=== PATIENT | female | born 1980 | race African-American/Black ===

== ENCOUNTER 2017-11-14 14:17 | Emergency (ER) | payer MEDICAID, OTHER ==
[~2017-11-14] VITALS: Ht 170.2 cm; Wt 133.0 kg
[2017-11-14 14:24] VITALS: BP 137/81; PULSE 110; RESP 16; TEMP 98.4; O2SAT 96
--- NOTE | 2017-11-14 14:40 | PD ---
HPI Chief Complaint: Injury Time Seen by Provider: 14:29 Travel History International Travel<30 days: No Contact w/Intl Traveler<30days: No Traveled to known affect area: No History of Present Illness HPI 37-year-old female with left ankle and foot pain after she twisted the extremity going up stairs yesterday. She has pain with weightbearing and range of motion. Denies paresthesia or weakness of the extremity. Symptom severity is moderate. Alleviated with rest and elevation. PFSH Past Medical History ?: Not LMP: 10/30/17 Social History Tobacco Use: No Allergies-Medications (Allergen,Severity, Reaction): Coded Allergies: No Known Allergies (Unverified , 11/14/17) Reported Meds & Prescriptions Reported Meds & Active Scripts Active No Active Prescriptions or Reported Medications Review of Systems Except as stated in HPI: all other systems reviewed are Neg Physical Exam Narrative GENERAL: Alert and well-appearing 37-year-old female SKIN: Warm and dry. HEAD: Normocephalic. EYES: No injection or drainage. NECK: Supple CARDIOVASCULAR: Regular rate and rhythm RESPIRATORY: Breath sounds equal bilaterally. No accessory muscle use. GASTROINTESTINAL: Abdomen soft, non-tender, nondistended. MUSCULOSKELETAL: No cyanosis. LLE: +TTP lateral malleolus and base of the fifth metatarsal. Mild swelling. Palpable DP pulse. Can freely wiggle the toes. Normal sensation. Brisk cap refill. Data Data Last Documented VS Vital Signs Date Time Temp Pulse Resp B/P (MAP) Pulse Ox O2 Delivery O2 Flow Rate FiO2 11/14/17 14:28 Room Air 11/14/17 14:24 98.4 110 16 137/81 (99) 96 Orders Orders Foot, Complete ([id number]) (11/14/17 ) Ankle, Complete ([id number]) (11/14/17 ) Apolinar Bandage (11/14/17 16:07) Splint Or Brace Apply/Monitor (11/14/17 16:07) Crutches (11/14/17 16:09) Ed Discharge Order (11/14/17 16:34) MDM Medical Decision Making Medical Screen Exam Complete: Yes Emergency Medical Condition: Yes Differential Diagnosis Fracture versus sprain versus contusion Narrative Course 37-year-old female with left ankle and foot pain. Extremities neurovascularly intact. X-ray negative for fracture Diagnosis Primary Impression: Ankle sprain Qualified Codes: S93.402A - Sprain of unspecified ligament of left ankle, initial encounter Referrals: Primary Care Physician Additional Instructions: Ibuprofen 800 mg every 6 hours as needed for pain. Ice and elevate the extremity. Splint and crutches for weightbearing. Follow-up with primary doctor Scripts No Active Prescriptions or Reported Meds Disposition: 01 DISCHARGE HOME Condition: Stable Paula Templeton Nov 14, 2017 14:40
--- NOTE | 2017-11-14 15:53 | RADRPT ---
EXAM DATE: 11/14/2017 2:49 PM EDT AGE/SEX: 37 years / Female INDICATIONS: Left foot pain after trip and fall down one step. CLINICAL DATA: This is the patient's initial encounter. Patient reports that signs and symptoms have been present for 1 day and indicates a pain score of 7/10. MEDICAL/SURGICAL HISTORY: None. None. COMPARISON: No prior exams available for comparison. FINDINGS: Bony structures are intact and in normal alignment. Osseous density is normal. Soft tissues are unre markable. No radiopaque foreign bodies seen. CONCLUSION: Negative examination. Electronically signed by: Eduar Jacobsen MD 11/14/2017 3:52 PM EDT
--- NOTE | 2017-11-14 15:54 | RADRPT ---
EXAM DATE: 11/14/2017 2:48 PM EDT AGE/SEX: 37 years / Female INDICATIONS: Left ankle pain after trip and fall down one step. CLINICAL DATA: This is the patient's initial encounter. Patient reports that signs and symptoms have been present for 1 day and indicates a pain score of 8/10. MEDICAL/SURGICAL HISTORY: None. None. COMPARISON: No prior exams available for comparison. FINDINGS: Bony structures are intact and in normal alignment. Joints are intact without dislocation or signifi cant arthropathy. Osseous density is normal. Soft tissues are unremarkable. No radiopaque foreign bodies seen. CONCLUSION: No evidence of acute bony injury or significant soft tissue swelling. Electronically signed by: Diony Gaines MD 11/14/2017 3:54 PM EDT
== END 2017-11-14 16:40 | disposition home or self-care (01) ==
LOC: PHEFT 14:17
DX: S93.402A Sprain of unspecified ligament of left ankle, initial encounter (principal); W10.9XXA Fall (on) (from) unspecified stairs and steps, initial encounter
CPT/HCPCS: 73610; 73630; 99283; E0113; L1906